=== PATIENT | female | born 1975 | race Caucasian/White ===

== ENCOUNTER 2017-09-24 14:26 | Outpatient (CLI) | END 2017-09-24 14:27 | disposition home or self-care (01) | LOC: FCC-LAB 14:26 | PROVIDERS: ATTEND Nurse Practitioner Family | DX: Z00.00 Encounter for general adult medical examination without abnormal findings (principal); Z82.49 Family history of ischemic heart disease and other diseases of the circulatory system | CPT/HCPCS: 36415; 80053; 80061; 80074; 81241; 85025; 85302; 85305; 85306 ==

== ENCOUNTER 2018-07-19 14:53 | Outpatient (CLI) | END 2018-07-19 14:54 | disposition home or self-care (01) | LOC: RHC-LAB 14:53 | PROVIDERS: ATTEND Nurse Practitioner Family | DX: E66.9 Obesity, unspecified (principal); F41.9 Anxiety disorder, unspecified | CPT/HCPCS: 36415; 80053; 80061; 84443; 85025 ==